=== PATIENT | male | born 1965 | race Caucasian/White ===

== ENCOUNTER 2018-07-12 21:36 | Inpatient (IN) | payer OTHER ==
[2018-07-12 23:12] VITALS: BMI 29.2
--- NOTE | 2018-07-13 00:54 | HP ---
"CIWA Score Nausea/Vomitin-No Nausea/No Vomiting Muscle Tremors: 4-Moderate,w/Arms Extend Anxiety: 3 Agitation: 4-Moderately Restless Paroxysmal Sweats: 2 (Facial moistre w/o beads) Orientation: 2-Disoriented Date<2 days Tacttile Disturbances: 0-None Auditory Disturbances: 0-None Visual Disturbances: 0-None Headache: 0-None Present CIWA-Ar Total Score: 15 - Admission Criteria OASAS Guidelines: Admission for Medically Managed Detox: Requires at least one of the followin. CIWA greater than 12 2. Seizures within the past 24 hours 3. Delirium tremens within the past 24 hours 4. Hallucinations within the past 24 hours 5. Acute intervention needed for co occurring medical disorder 6. Acute intervention needed for co occurring psychiatric disorder 7. Severe withdrawal that cannot be handled at a lower level of care (continued vomiting, continued diarrhea, abnormal vital signs) requiring intravenous medication and/or fluids 8. Patient presents the following: CIWA greater than 12 Admission Criteria Met: Admission criteria met Admission ROS [facility] Chief Complaint: Here for alcohol withdrawal. Allergies/Adverse Reactions: Allergies Allergy/AdvReac Type Severity Reaction Status Date / Time No Known Allergies Allergy Verified 07/13/18 00:55 History of Present Illness: Here for alcohol detox. Alcohol use since age 34. Drinks 2 pints rum last 2-3 days. Heroin use began at age 34. Relapsing despite on [facility]. Currently on Methadone 60 mg PO daily. States last medicated today. States on the [facility] program on [address] Needs dose verification. Denies seizures or blackouts. Last overdose 4 years ago. Longest length of sobriety 2 years 1225-4274. (R) eye redness w/ pain or itching. With (+) blurriness x 1 day. Denies eye trauma. Hx: Depression. Denies thoughts of hurting self or others Search Terms: Jesus Humphrey, 1965 Search Date: 07/13/2018 01:02:49 AM The Drug Utilization Report below displays all of the controlled substance prescriptions, if any, that your patient has filled in the last twelve months. The information displayed on this report is compiled from pharmacy submissions to the Department, and accurately reflects the information as submitted by the pharmacies. This report was requested by: Ayleen Forde | Reference #: [id number] Exam Limitations: No Limitations - Ebola screening Have you traveled outside of the country in the last 21 days: No Have you had contact with anyone from an Ebola affected area: No Have you been sick,other than usual withdrawal symptoms: No Do you have a fever: No - Review of Systems Constitutional: Diaphoresis EENT: reports: Blurred Vision, Dental Problems (Missing teeth. Chews and swallows ok.) Respiratory: reports: No Symptoms reported Cardiac: reports: No Symptoms Reported GI: reports: No Symptoms Reported : reports: No Symptoms Reported Musculoskeletal: reports: Joint Pain (Omega knee pain. Uses a cane.) Integumentary: reports: Rash (Dry rash x 1 month. Denies itching) Neuro: reports: Numbness (Numbness and cramps in legs - worse when wakes up in am.), Tremors Endocrine: reports: Increased Thirst, Increased Urine Hematology: reports: No Symptoms Reported Psychiatric: reports: Judgement Intact, Agitated, Anxious, Depressed, Disorientated (Knows month. Unsure of date.) Patient History - Patient Medical History Hx Anemia: No Hx Asthma: No Hx Chronic Obstructive Pulmonary Disease (COPD): No Hx Cancer: No Hx Cardiac Disorders: No Hx Congestive Heart Failure: No Hx Hypertension: No HX Cerebrovascular Accident: No Hx Seizures: No Hx Dementia: No Hx Diabetes: No Hx Gastrointestinal Disorders: No Hx Genitourinary Disorders: No Hx Sexually Transmitted Disorders: No Hx Hepatitis C: Yes (Treated) Hx Depression: Yes (Denies thoughts of hurting self or others) Hx Bipolar Disorder: Yes - PPD History Previous Implant?: Yes Documented Results: Negative w/proof Implanted On Prior [facility] Admission?: Yes PPD to be Administered?: No - Smoking Cessation Smoking history: Current every day smoker Have you smoked in the past 12 months: Yes Aproximately how many cigarettes per day: 5 Hx Chewing Tobacco Use: No Initiated information on smoking cessation: Yes 'Breaking Loose' booklet given: 07/13/18 - Substance & Tx. History Hx Alcohol Use: Yes Hx Substance Use: Yes Substance Use Type: Alcohol, Heroin Hx Substance Use Treatment: Yes (detox, [facility]) Admission Physical Exam BHS - Vital Signs Vital Signs: Vital Signs - 24 hr 07/12/18 23:02 Temperature 98.1 F Pulse Rate 67 Respiratory 18 Rate Blood Pressure 153/83 - Physical General Appearance: Yes: Nourished, Mild Distress, Tremorous, Irritable, Sweating, Anxious HEENTM: Yes: EOMI, Hearing grossly Normal, BERNY, Other (Increased scleral and junctival erythema w/ injection. Small amount of whitish discharge from punctum. 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, Alert, Motor Strength 5/5, Normal Mood /Affect Integumentary: Yes: Dry, Warm, Rash (Papular lesions facial area), Other ( Darkened discoloration of legs w/ edema.) Lymphatic: Yes: Within Normal Limits - Diagnostic (1) Alcohol dependence with uncomplicated withdrawal Current Visit: Yes Status: Acute (2) Nicotine dependence, uncomplicated Current Visit: Yes Status: Chronic Qualifiers: Nicotine product type: cigarettes Qualified Code(s): F17.210 - Nicotine dependence, cigarettes, uncomplicated (3) Methadone maintenance therapy patient Current Visit: Yes Status: Chronic (4) Conjunctivitis Current Visit: Yes Status: Acute Qualifiers: Conjunctivitis type: unspecified Laterality: right Qualified Code(s): H10.9 - Unspecified conjunctivitis (5) Rash and nonspecific skin eruption Current Visit: Yes Status: Chronic Comment: Facial area Cleared for Admission [facility] - Detox or Rehab [facility] Level of Care: Medically Managed Detox Regimen/Protocol: Librium [facility] Breath Alcohol Content Breath Alcohol Content: 0 Urine Drug Screen - Results Drug Screen Negative: No Urine Drug Screen Results: OPI-Opiates, MTD-Methadone, OXY-Oxycodone, FEN- Fentanyl"
[2018-07-13] MEDS ORDERED: MAGNESIUM CITRATE 300 ML BOTTLE PO PRN (01:22)
[2018-07-13] MEDS ORDERED: MAGNESIUM HYDROX 2400MG/30ML ORAL SUSPENSION 30 ML CUP PO PRN (01:22)
[2018-07-13] MEDS ORDERED: NICOTINE POLACRILEX 2 MG GUM BC PRN (01:22)
[2018-07-13] MEDS ORDERED: IBUPROFEN 400 MG TABLET (FP) PO PRN (01:22)
[2018-07-13] MEDS ORDERED: chlordiazePOXIDE HCL 25 MG CAPSULE PO PRN (01:22)
[2018-07-13] MEDS ORDERED: chlordiazePOXIDE HCL 25 MG CAPSULE PO ONE (01:22)
[2018-07-13] MEDS ORDERED: MENTHOL/PHENOL 1 EACH UD MM PRN (01:22)
[2018-07-13] MEDS ORDERED: LOPERAMIDE HCL 2 MG CAPSULE PO PRN (01:22)
[2018-07-13] MEDS ORDERED: ACETAMINOPHEN 325 MG TABLET (FP) PO PRN (01:22)
[2018-07-13] MEDS ORDERED: MAG HYDROX/AL HYDROX/SIMETH 30 ML UNIT-DOSE CUP PO PRN (01:22)
[2018-07-13] MEDS: OFLOXACIN 0.3% OPHTHALMIC SOLUTION 5 ML BOTTLE OD SCH ×5 (06:11→22:32)
[2018-07-13] MEDS: HYDROCORTISONE 1% TOPICAL CREAM 30 GM TUBE TP SCH ×3 (06:11→22:32)
[2018-07-13] MEDS: chlordiazePOXIDE HCL 25 MG CAPSULE PO SCH ×4 (06:12→22:32)
[2018-07-13] MEDS ORDERED: METHADONE HCL 10 MG TABLET PO SCH (09:00)
[2018-07-13] MEDS ORDERED: METHADONE HCL 40 MG DISPERSABLE TABLET ONE (09:39)
[2018-07-13] MEDS ORDERED: METHADONE HCL 10 MG TABLET ONE (09:40)
[2018-07-13] MEDS: METHADONE 40 MG, METHADONE 20 MG PO SCH (11:54)
[2018-07-13] MEDS: PRENATAL VITAMINS W/ FOLIC ACID TABLET (FP) PO SCH (11:55)
[2018-07-13] MEDS: NICOTINE 7 MG/24 HOURS TOPICAL PATCH TD SCH (11:56)
--- NOTE | 2018-07-13 16:24 | EKG ---
Test Reason : Blood Pressure : / mmHG Vent. Rate : 067 BPM Atrial Rate : 067 BPM P-R Int : 168 ms QRS Dur : 092 ms QT Int : 432 ms P-R-T Axes : 059 017 020 degrees QTc Int : 456 ms NORMAL SINUS RHYTHM NORMAL ECG NO PREVIOUS ECGS AVAILABLE Confirmed by DELMAR BUCHANAN MD ([id number]) on 07/13/2018 4:24:11 PM Referred By: Confirmed By:DELMAR BUCHANAN MD
--- NOTE | 2018-07-13 17:27 | PN ---
S CIWA - CIWA Score Nausea/Vomitin-No Nausea/No Vomiting Muscle Tremors: 4-Moderate,w/Arms Extend Anxiety: 2 Agitation: 0-Normal Activity Paroxysmal Sweats: 3 Orientation: 0-Oriented Tacttile Disturbances: 0-None Auditory Disturbances: 0-None Visual Disturbances: 3-Moderate Sensitivity Headache: 0-None Present CIWA-Ar Total Score: 12 BHS Progress Note (SOAP) Subjective: Body Aches, Sweating, Tremors. Objective: PATIENT A & O X 3. IN NO ACUTE DISTRESS. 07/13/18 17:27 Vital Signs Temperature 98.2 F 07/13/18 16:55 Pulse Rate 52 L 07/13/18 16:55 Respiratory Rate 16 07/13/18 16:55 Blood Pressure 105/62 07/13/18 16:55 O2 Sat by Pulse Oximetry (%) ADMISSION LAB RESULTS PENDING. 07/13/18 17:28 Assessment: 07/13/18 17:28 WITHDRAWAL SYMPTOMS. Plan: CONTINUE DETOX. INCREASE DAILY PO FLUID INTAKE. ENCOURAGE AMBULATION.
[2018-07-13] MEDS ORDERED: MELATONIN 5 MG TABLETS PO PRN (22:00)
[2018-07-13] MEDS: THIAMINE HCL 100 MG TABLET (FP) PO SCH (22:31)
[2018-07-14] MEDS ORDERED: METHADONE HCL 40 MG DISPERSABLE TABLET ONE (05:37)
[2018-07-14] MEDS: METHADONE 40 MG, METHADONE 20 MG PO SCH (05:38)
[2018-07-14] MEDS ORDERED: METHADONE HCL 10 MG TABLET ONE (05:38)
[2018-07-14] MEDS: chlordiazePOXIDE HCL 25 MG CAPSULE PO SCH ×3 (05:38→18:07)
[2018-07-14] MEDS: HYDROCORTISONE 1% TOPICAL CREAM 30 GM TUBE TP SCH ×3 (05:40→23:55)
[2018-07-14] MEDS: OFLOXACIN 0.3% OPHTHALMIC SOLUTION 5 ML BOTTLE OD SCH ×5 (05:40→23:55)
[2018-07-14 11:01] LABS: HEMATOCRIT 35.1 % (35.4-49); HEMOGLOBIN 11.4 GM/dL (11.7-16.9); MCH 28.3 pg (25.7-33.7); MCHC 32.4 g/dl (32.0-35.9); MEAN CELL VOLUME 87.2 fl (80-96); MEAN PLT VOLUME 8.2 fl (7.5-11.1); PLATELET COUNT 183 K/MM3 (134-434); RBC 4.02 M/mm3 (4.00-5.60); RDW 15.4 % (11.9-15.9); WHITE BLOOD COUNT 3.5 K/mm3 (4.0-10.0)
[2018-07-14] MEDS: PRENATAL VITAMINS W/ FOLIC ACID TABLET (FP) PO SCH (11:39)
[2018-07-14] MEDS: NICOTINE 7 MG/24 HOURS TOPICAL PATCH TD SCH (11:39)
[2018-07-14 11:41] LABS: ALBUMIN 3.1 g/dl (3.4-5.0); ALK PHOS 64 U/L (45-117); ANION GAP 5 MMOL/L (8-16); BILIRUBIN,TOTAL 0.7 mg/dL (0.2-1); BLOOD UREA NITROGEN 16 mg/dL (7-18); CALCIUM 8.1 mg/dL (8.5-10.1); CHLORIDE 104 mmol/L (98-107); CO2 29 mmol/L (21-32); CREATININE 0.6 mg/dL (0.55-1.3); GLUCOSE,RANDOM 95 mg/dL (74-106); POTASSIUM 4.1 mmol/L (3.5-5.1); SGOT/AST 19 U/L (15-37); SGPT/ALT 21 U/L (13-61); SODIUM 138 mmol/L (136-145); TOT PROT 6.6 g/dl (6.4-8.2)
[2018-07-14] MEDS ORDERED: TRIMETHOBENZAMIDE HCL 300 MG CAPSULE PO PRN (13:37)
[2018-07-14 16:27] LABS: URINE APPEARANCE CLEAR; URINE BILIRUBIN NEGATIVE (<2.0 mg/dL); URINE COLOR YELLOW; URINE GLUCOSE (UA) NEGATIVE (NEGATIVE); URINE KETONE NEGATIVE (NEGATIVE); URINE LEUK ESTERASE TRACE (NEGATIVE); URINE NITRITE NEGATIVE (NEGATIVE); URINE PROTEIN NEGATIVE (NEGATIVE)
[2018-07-14 16:52] LABS: EPI CELLS RARE /HPF (FEW)
--- NOTE | 2018-07-14 19:07 | PN ---
S CIWA - CIWA Score Nausea/Vomitin Muscle Tremors: 3 Anxiety: 1-Mildly Anxious Agitation: 0-Normal Activity Paroxysmal Sweats: 3 Orientation: 2-Disoriented Date<2 days Tacttile Disturbances: 0-None Auditory Disturbances: 0-None Visual Disturbances: 0-None Headache: 2-Mild CIWA-Ar Total Score: 16 BHS Progress Note (SOAP) Subjective: Vomiting, Stomach Cramping, Sweating, Body Aches, H/A, Tremors. Objective: PATIENT A & O X 2 (UNCERTAIN ABOUT CURRENT DAY / DATE). PATIENT OBSERVED AMBULATING ON UNIT. IN NO ACUTE DISTRESS. 07/14/18 19:04 Vital Signs Temperature 98.4 F 07/14/18 18:43 Pulse Rate 67 07/14/18 18:43 Respiratory Rate 18 07/14/18 18:43 Blood Pressure 122/69 07/14/18 18:43 O2 Sat by Pulse Oximetry (%) Laboratory Tests 07/13/18 07/14/18 07/14/18 07:00 07:00 07:00 WBC 3.5 L RBC 4.02 Hgb 11.4 L Hct 35.1 L MCV 87.2 MCH 28.3 MCHC 32.4 RDW 15.4 Plt Count 183 MPV 8.2 Sodium 138 Potassium 4.1 Chloride 104 Carbon Dioxide 29 Anion Gap 5 L BUN 16 Creatinine 0.6 Creat Clearance w eGFR > 60 Random Glucose 95 Calcium 8.1 L Total Bilirubin 0.7 AST 19 ALT 21 Alkaline Phosphatase 64 Total Protein 6.6 Albumin 3.1 L Urine Color Urine Appearance Urine pH Ur Specific [place] Urine Protein Urine Glucose (UA) Urine Ketones Urine Blood Urine Nitrite Urine Bilirubin Urine Urobilinogen Ur Leukocyte Esterase Urine WBC (Auto) Urine RBC (Auto) Ur Epithelial Cells RPR Titer HIV 1&2 Antibody Screen Negative HIV P24 Antigen Negative 07/14/18 07/14/18 07:00 12:50 WBC RBC Hgb Hct MCV MCH MCHC RDW Plt Count MPV Sodium Potassium Chloride Carbon Dioxide Anion Gap BUN Creatinine Creat Clearance w eGFR Random Glucose Calcium Total Bilirubin AST ALT Alkaline Phosphatase Total Protein Albumin Urine Color Yellow Urine Appearance Clear Urine pH 7.0 Ur Specific [place] 1.023 Urine Protein Negative Urine Glucose (UA) Negative Urine Ketones Negative Urine Blood Negative Urine Nitrite Negative Urine Bilirubin Negative Urine Urobilinogen 2.0 Ur Leukocyte Esterase Trace Urine WBC (Auto) 2 Urine RBC (Auto) 3 Ur Epithelial Cells Rare RPR Titer Nonreactive HIV 1&2 Antibody Screen HIV P24 Antigen LABS NOTED. Assessment: 07/14/18 19:05 WITHDRAWAL SYMPTOMS. LEUKOPENIA. 07/14/18 19:07 Plan: CONTINUE DETOX. INCREASE DAILY PO FLUID INTAKE.
[2018-07-14] MEDS: THIAMINE HCL 100 MG TABLET (FP) PO SCH (23:55)
[2018-07-15] MEDS: chlordiazePOXIDE HCL 25 MG CAPSULE PO SCH (00:27)
[2018-07-15] MEDS ORDERED: METHADONE HCL 40 MG DISPERSABLE TABLET ONE (06:13)
[2018-07-15] MEDS: chlordiazePOXIDE 5 MG CAPSULE PO SCH ×4 (06:13→22:18)
[2018-07-15] MEDS: METHADONE 40 MG, METHADONE 20 MG PO SCH (06:13)
[2018-07-15] MEDS ORDERED: METHADONE HCL 10 MG TABLET ONE (06:13)
[2018-07-15] MEDS: HYDROCORTISONE 1% TOPICAL CREAM 30 GM TUBE TP SCH ×3 (07:41→22:18)
[2018-07-15] MEDS: OFLOXACIN 0.3% OPHTHALMIC SOLUTION 5 ML BOTTLE OD SCH ×5 (07:42→22:19)
--- NOTE | 2018-07-15 09:06 | PN ---
BHS Progress Note (SOAP) Subjective: Pt states doing well on detox protocol O Vital Signs - 24 hr 07/14/18 07/14/18 07/14/18 09:58 15:58 18:43 Temperature 97.7 F 99.7 F H 98.4 F Pulse Rate 48 L 58 L 67 Respiratory 18 18 18 Rate Blood Pressure 110/62 98/54 L 122/69 07/15/18 07/15/18 07/15/18 00:07 00:30 03:30 Temperature 99.7 F H Pulse Rate 67 Respiratory 18 18 18 Rate Blood Pressure 116/68 07/15/18 07:12 Temperature 97.8 F Pulse Rate 52 L Respiratory 18 Rate Blood Pressure 110/66 Laboratory Tests 07/13/18 07/14/18 07/14/18 07:00 07:00 07:00 WBC 3.5 L RBC 4.02 Hgb 11.4 L Hct 35.1 L MCV 87.2 MCH 28.3 MCHC 32.4 RDW 15.4 Plt Count 183 MPV 8.2 Sodium 138 Potassium 4.1 Chloride 104 Carbon Dioxide 29 Anion Gap 5 L BUN 16 Creatinine 0.6 Creat Clearance w eGFR > 60 Random Glucose 95 Calcium 8.1 L Total Bilirubin 0.7 AST 19 ALT 21 Alkaline Phosphatase 64 Total Protein 6.6 Albumin 3.1 L Urine Color Urine Appearance Urine pH Ur Specific [place] Urine Protein Urine Glucose (UA) Urine Ketones Urine Blood Urine Nitrite Urine Bilirubin Urine Urobilinogen Ur Leukocyte Esterase Urine WBC (Auto) Urine RBC (Auto) Ur Epithelial Cells RPR Titer HIV 1&2 Antibody Screen Negative HIV P24 Antigen Negative 07/14/18 07/14/18 07:00 12:50 WBC RBC Hgb Hct MCV MCH MCHC RDW Plt Count MPV Sodium Potassium Chloride Carbon Dioxide Anion Gap BUN Creatinine Creat Clearance w eGFR Random Glucose Calcium Total Bilirubin AST ALT Alkaline Phosphatase Total Protein Albumin Urine Color Yellow Urine Appearance Clear Urine pH 7.0 Ur Specific [place] 1.023 Urine Protein Negative Urine Glucose (UA) Negative Urine Ketones Negative Urine Blood Negative Urine Nitrite Negative Urine Bilirubin Negative Urine Urobilinogen 2.0 Ur Leukocyte Esterase Trace Urine WBC (Auto) 2 Urine RBC (Auto) 3 Ur Epithelial Cells Rare RPR Titer Nonreactive HIV 1&2 Antibody Screen HIV P24 Antigen a/p: Pt here for alcohol detox- continue detox protocol, pt without complaints
[2018-07-15] MEDS: PRENATAL VITAMINS W/ FOLIC ACID TABLET (FP) PO SCH (10:52)
[2018-07-15] MEDS: NICOTINE 7 MG/24 HOURS TOPICAL PATCH TD SCH (10:56)
[2018-07-15] MEDS: THIAMINE HCL 100 MG TABLET (FP) PO SCH (22:18)
[2018-07-16] MEDS ORDERED: METHADONE HCL 40 MG DISPERSABLE TABLET ONE (04:16)
[2018-07-16] MEDS ORDERED: METHADONE HCL 10 MG TABLET ONE (04:16)
[2018-07-16] MEDS: chlordiazePOXIDE HCL 10 MG CAPSULE PO SCH ×2 (05:48→10:40)
[2018-07-16] MEDS: METHADONE 40 MG, METHADONE 20 MG PO SCH (05:48)
[2018-07-16] MEDS: HYDROCORTISONE 1% TOPICAL CREAM 30 GM TUBE TP SCH ×2 (07:06→15:12)
[2018-07-16] MEDS: OFLOXACIN 0.3% OPHTHALMIC SOLUTION 5 ML BOTTLE OD SCH ×3 (07:07→15:12)
--- NOTE | 2018-07-16 09:17 | DS ---
[facility] Detox Discharge Summary Admission Date: 07/12/18 Discharge Date: 07/16/18 - History Present History: Alcohol Dependence Additional Comments: 53 years old male admitted on 07/13/18 for alcohol withdrawal stabilization feeling better preferred begin chemical rehab today at [facility] no acute distress reported tolerable withdrawal sx at the present time - Physical Exam Results Vital Signs: Vital Signs Temperature 97.9 F 07/16/18 07:46 Pulse Rate 55 L 07/16/18 07:46 Respiratory Rate 18 07/16/18 07:46 Blood Pressure 102/59 L 07/16/18 07:46 O2 Sat by Pulse Oximetry (%) Pertinent Admission Physical Exam Findings: Laboratory Last Values WBC 3.5 K/mm3 (4.0-10.0) L 07/14/18 07:00 RBC 4.02 M/mm3 (4.00-5.60) 07/14/18 07:00 Hgb 11.4 GM/dL (11.7-16.9) L 07/14/18 07:00 Hct 35.1 % (35.4-49) L 07/14/18 07:00 MCV 87.2 fl (80-96) 07/14/18 07:00 MCH 28.3 pg (25.7-33.7) 07/14/18 07:00 MCHC 32.4 g/dl (32.0-35.9) 07/14/18 07:00 RDW 15.4 % (11.9-15.9) 07/14/18 07:00 Plt Count 183 K/MM3 (134-434) 07/14/18 07:00 MPV 8.2 fl (7.5-11.1) 07/14/18 07:00 Sodium 138 mmol/L (136-145) 07/14/18 07:00 Potassium 4.1 mmol/L (3.5-5.1) 07/14/18 07:00 Chloride 104 mmol/L (98-107) 07/14/18 07:00 Carbon Dioxide 29 mmol/L (21-32) 07/14/18 07:00 Anion Gap 5 MMOL/L (8-16) L 07/14/18 07:00 BUN 16 mg/dL (7-18) 07/14/18 07:00 Creatinine 0.6 mg/dL (0.55-1.3) 07/14/18 07:00 Creat Clearance w eGFR > 60 (>60) 07/14/18 07:00 Random Glucose 95 mg/dL (74-106) 07/14/18 07:00 Calcium 8.1 mg/dL (8.5-10.1) L 07/14/18 07:00 Total Bilirubin 0.7 mg/dL (0.2-1) 07/14/18 07:00 AST 19 U/L (15-37) 07/14/18 07:00 ALT 21 U/L (13-61) 07/14/18 07:00 Alkaline Phosphatase 64 U/L (45-117) 07/14/18 07:00 Total Protein 6.6 g/dl (6.4-8.2) 07/14/18 07:00 Albumin 3.1 g/dl (3.4-5.0) L 07/14/18 07:00 Urine Color Yellow 07/14/18 12:50 Urine Appearance Clear 07/14/18 12:50 Urine pH 7.0 (5.0-8.0) 07/14/18 12:50 Ur Specific [place] 1.023 (1.010-1.035) 07/14/18 12:50 Urine Protein Negative (NEGATIVE) 07/14/18 12:50 Urine Glucose (UA) Negative (NEGATIVE) 07/14/18 12:50 Urine Ketones Negative (NEGATIVE) 07/14/18 12:50 Urine Blood Negative (NEGATIVE) 07/14/18 12:50 Urine Nitrite Negative (NEGATIVE) 07/14/18 12:50 Urine Bilirubin Negative (<2.0 mg/dL) 07/14/18 12:50 Urine Urobilinogen 2.0 mg/dL (0.2-1.0) 07/14/18 12:50 Ur Leukocyte Esterase Trace (NEGATIVE) 07/14/18 12:50 Urine WBC (Auto) 2 /hpf (3-5) 07/14/18 12:50 Urine RBC (Auto) 3 /hpf (0-3) 07/14/18 12:50 Ur Epithelial Cells Rare /HPF (FEW) 07/14/18 12:50 RPR Titer Nonreactive (NONREACTIVE) 07/14/18 07:00 HIV 1&2 Antibody Screen Negative 07/13/18 07:00 HIV P24 Antigen Negative 07/13/18 07:00 lab noted alcohol withdrawal sx - Treatment Hospital Course: Detox Protocol Followed, Detoxed Safely, Responded well, Discharged Condition Good, Rehab Referral Accepted Patient has Accepted a Rehab Referral to: [facility] - Medication Discharge Medications: Ambulatory Orders NK [No Known Home Medication] 07/13/18 - Diagnosis (1) Alcohol dependence with uncomplicated withdrawal Current Visit: Yes Status: Acute (2) Methadone maintenance therapy patient Current Visit: Yes Status: Chronic (3) Nicotine dependence, uncomplicated Current Visit: Yes Status: Acute Qualifiers: Nicotine product type: cigarettes Qualified Code(s): F17.210 - Nicotine dependence, cigarettes, uncomplicated - AMA Did Patient Leave Against Medical Advice: No
[2018-07-16] MEDS: PRENATAL VITAMINS W/ FOLIC ACID TABLET (FP) PO SCH (10:39)
[2018-07-16] MEDS: NICOTINE 7 MG/24 HOURS TOPICAL PATCH TD SCH (10:40)
[2018-07-16 13:55] VITALS: BP 108/56; PULSE 58; TEMP 98.1
== END 2018-07-16 15:59 | disposition other institution (70) | DRG 773 ==
LOC: YASAS 21:36 → Y6N 23:51
PROC: HZ2ZZZZ Detoxification Services for Substance Abuse Treatment (ICD-10-PCS; principal; 2018-07-12)
DX: F10.230 Alcohol dependence with withdrawal, uncomplicated (principal); F11.20 Opioid dependence, uncomplicated; F17.210 Nicotine dependence, cigarettes, uncomplicated; F31.9 Bipolar disorder, unspecified; R21 Rash and other nonspecific skin eruption; H10.9 Unspecified conjunctivitis; Z86.19 Personal history of other infectious and parasitic diseases; Z59.0 Homelessness
CPT/HCPCS: 36415; 80053; 81003; 81015; 85027; 86593; 87389; 93005; 93010

== ENCOUNTER 2018-07-16 16:10 | Inpatient (IN) | payer OTHER ==
--- NOTE | 2018-07-16 12:43 | HP ---
LIZZETTE SEBASTIAN Rehab Assess/Revision - Admission History Admitted to Rehab from: [facility] [place] Date of Admission to Rehab: 07/16/18 - Findings Detox History & Physical reviewed: Yes Concur with findings: Yes Comments/Additional Findings: transferred from detox to rehab admission a sper protocol Inpatient Rehab Admission - Initial Determination Are CD services needed?: Yes Free of communicable disease: Yes Not in need of hospitalization: Yes - Rehab Admission Criteria Previous failed treatment: Yes Poor recovery environment: Yes Comorbidities: Yes Lacks judgement: No Patient is meeting Inpatient Rehab admission criteria:: Yes
[~2018-07-16 16:10] MED LIST: ACETAMINOPHEN 325 MG TABLET (FP) PO PRN; IBUPROFEN 400 MG TABLET (FP) PO PRN; LOPERAMIDE HCL 2 MG CAPSULE PO PRN; MAG HYDROX/AL HYDROX/SIMETH 30 ML UNIT-DOSE CUP PO PRN; MAGNESIUM CITRATE 300 ML BOTTLE PO PRN; MAGNESIUM HYDROX 2400MG/30ML ORAL SUSPENSION 30 ML CUP PO PRN; MENTHOL/PHENOL 1 EACH UD MM PRN; NICOTINE 14 MG/24 HOURS TOPICAL PATCH TD PRN; NICOTINE POLACRILEX 2 MG GUM BUC PRN; P-EPHED 60MG/TRIPROLIDI 2.5MG TABLET PO PRN; guaiFENesin/D-METHORPHAN HB 10 ML UNIT-DOSE CUPS PO PRN
[2018-07-16] MEDS: THIAMINE HCL 100 MG TABLET (FP) PO SCH (22:11)
[2018-07-17] MEDS ORDERED: METHADONE HCL 10 MG TABLET ONE (06:14)
[2018-07-17] MEDS: METHADONE 40 MG, METHADONE 20 MG PO SCH (06:15)
[2018-07-17] MEDS ORDERED: METHADONE HCL 40 MG DISPERSABLE TABLET ONE (06:15)
[2018-07-17] MEDS ORDERED: METHADONE HCL 40 MG DISPERSABLE TABLET PO SCH (10:00)
[2018-07-17] MEDS: PRENATAL VITAMINS W/ FOLIC ACID TABLET (FP) PO SCH (10:30)
[2018-07-17] MEDS ORDERED: OFLOXACIN 0.3% OPHTHALMIC SOLUTION 5 ML BOTTLE OD SCH (11:00)
[2018-07-17] MEDS: OFLOXACIN 0.3% OPHTHALMIC SOLUTION 5 ML BOTTLE OD SCH ×3 (14:28→21:45)
[2018-07-17] MEDS: MELATONIN 5 MG TABLETS PO PRN (21:45)
[2018-07-17] MEDS: THIAMINE HCL 100 MG TABLET (FP) PO SCH (21:45)
[2018-07-18] MEDS: OFLOXACIN 0.3% OPHTHALMIC SOLUTION 5 ML BOTTLE OD SCH ×5 (06:18→21:51)
[2018-07-18] MEDS ORDERED: METHADONE HCL 40 MG DISPERSABLE TABLET ONE (07:05)
[2018-07-18] MEDS ORDERED: METHADONE HCL 10 MG TABLET ONE (07:05)
[2018-07-18] MEDS: METHADONE 40 MG, METHADONE 20 MG PO SCH (07:18)
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
[2018-07-18] MEDS: PRENATAL VITAMINS W/ FOLIC ACID TABLET (FP) PO SCH (11:00)
[2018-07-18] MEDS: THIAMINE HCL 100 MG TABLET (FP) PO SCH (21:51)
[2018-07-19] MEDS ORDERED: METHADONE HCL 10 MG TABLET ONE (06:33)
[2018-07-19] MEDS ORDERED: METHADONE HCL 40 MG DISPERSABLE TABLET ONE (06:33)
[2018-07-19] MEDS: METHADONE 40 MG, METHADONE 20 MG PO SCH (06:33)
[2018-07-19] MEDS: OFLOXACIN 0.3% OPHTHALMIC SOLUTION 5 ML BOTTLE OD SCH ×5 (06:34→21:42)
[2018-07-19] MEDS: PRENATAL VITAMINS W/ FOLIC ACID TABLET (FP) PO SCH (10:23)
[2018-07-19] MEDS: THIAMINE HCL 100 MG TABLET (FP) PO SCH (21:42)
[2018-07-19] MEDS: MELATONIN 5 MG TABLETS PO PRN (21:43)
[2018-07-20] MEDS ORDERED: METHADONE HCL 10 MG TABLET ONE (03:39)
[2018-07-20] MEDS ORDERED: METHADONE HCL 40 MG DISPERSABLE TABLET ONE (03:39)
[2018-07-20] MEDS: METHADONE 40 MG, METHADONE 20 MG PO SCH (06:27)
[2018-07-20] MEDS: OFLOXACIN 0.3% OPHTHALMIC SOLUTION 5 ML BOTTLE OD SCH ×5 (06:27→21:59)
[2018-07-20] MEDS: PRENATAL VITAMINS W/ FOLIC ACID TABLET (FP) PO SCH (10:47)
[2018-07-20] MEDS: THIAMINE HCL 100 MG TABLET (FP) PO SCH (21:59)
[2018-07-20] MEDS: MELATONIN 5 MG TABLETS PO PRN (22:00)
[2018-07-21] MEDS ORDERED: METHADONE HCL 10 MG TABLET ONE (04:06)
[2018-07-21] MEDS ORDERED: METHADONE HCL 40 MG DISPERSABLE TABLET ONE (04:07)
[2018-07-21] MEDS: OFLOXACIN 0.3% OPHTHALMIC SOLUTION 5 ML BOTTLE OD SCH ×5 (06:27→21:54)
[2018-07-21] MEDS: METHADONE 40 MG, METHADONE 20 MG PO SCH (06:27)
[2018-07-21] MEDS: PRENATAL VITAMINS W/ FOLIC ACID TABLET (FP) PO SCH (10:59)
[2018-07-21] MEDS: THIAMINE HCL 100 MG TABLET (FP) PO SCH (21:54)
[2018-07-22] MEDS ORDERED: METHADONE HCL 10 MG TABLET ONE (02:56)
[2018-07-22] MEDS ORDERED: METHADONE HCL 40 MG DISPERSABLE TABLET ONE (02:56)
[2018-07-22] MEDS: METHADONE 40 MG, METHADONE 20 MG PO SCH (06:43)
[2018-07-22] MEDS: OFLOXACIN 0.3% OPHTHALMIC SOLUTION 5 ML BOTTLE OD SCH ×5 (06:43→22:00)
[2018-07-22] MEDS: PRENATAL VITAMINS W/ FOLIC ACID TABLET (FP) PO SCH (10:39)
[2018-07-22] MEDS: THIAMINE HCL 100 MG TABLET (FP) PO SCH (21:59)
[2018-07-23] MEDS ORDERED: METHADONE HCL 10 MG TABLET ONE (05:25)
[2018-07-23] MEDS ORDERED: METHADONE HCL 40 MG DISPERSABLE TABLET ONE (05:25)
[2018-07-23] MEDS: METHADONE 40 MG, METHADONE 20 MG PO SCH (06:38)
[2018-07-23] MEDS: OFLOXACIN 0.3% OPHTHALMIC SOLUTION 5 ML BOTTLE OD SCH ×5 (06:39→23:32)
[2018-07-23] MEDS: PRENATAL VITAMINS W/ FOLIC ACID TABLET (FP) PO SCH (10:23)
[2018-07-23] MEDS: THIAMINE HCL 100 MG TABLET (FP) PO SCH (22:12)
[2018-07-24] MEDS ORDERED: METHADONE HCL 10 MG TABLET ONE (06:34)
[2018-07-24] MEDS ORDERED: METHADONE HCL 40 MG DISPERSABLE TABLET ONE (06:34)
[2018-07-24] MEDS: METHADONE 40 MG, METHADONE 20 MG PO SCH (06:34)
[2018-07-24] MEDS: OFLOXACIN 0.3% OPHTHALMIC SOLUTION 5 ML BOTTLE OD SCH ×5 (06:35→21:48)
[2018-07-24] MEDS: PRENATAL VITAMINS W/ FOLIC ACID TABLET (FP) PO SCH (10:49)
[2018-07-24] MEDS: THIAMINE HCL 100 MG TABLET (FP) PO SCH (21:47)
[2018-07-25] MEDS ORDERED: METHADONE HCL 40 MG DISPERSABLE TABLET ONE (03:57)
[2018-07-25] MEDS ORDERED: METHADONE HCL 10 MG TABLET ONE (03:57)
[2018-07-25] MEDS: METHADONE 40 MG, METHADONE 20 MG PO SCH (06:22)
[2018-07-25] MEDS: OFLOXACIN 0.3% OPHTHALMIC SOLUTION 5 ML BOTTLE OD SCH ×5 (07:13→21:56)
[2018-07-25] MEDS: PRENATAL VITAMINS W/ FOLIC ACID TABLET (FP) PO SCH (10:22)
[2018-07-25] MEDS: THIAMINE HCL 100 MG TABLET (FP) PO SCH (21:56)
[2018-07-26] MEDS ORDERED: METHADONE HCL 40 MG DISPERSABLE TABLET ONE (04:27)
[2018-07-26] MEDS ORDERED: METHADONE HCL 10 MG TABLET ONE (04:27)
[2018-07-26] MEDS: METHADONE 40 MG, METHADONE 20 MG PO SCH (07:14)
[2018-07-26] MEDS: OFLOXACIN 0.3% OPHTHALMIC SOLUTION 5 ML BOTTLE OD SCH ×5 (07:14→21:37)
[2018-07-26] MEDS: PRENATAL VITAMINS W/ FOLIC ACID TABLET (FP) PO SCH (10:10)
[2018-07-26] MEDS: THIAMINE HCL 100 MG TABLET (FP) PO SCH (21:37)
[2018-07-26] MEDS: MELATONIN 5 MG TABLETS PO PRN (21:37)
[2018-07-27] MEDS ORDERED: METHADONE HCL 40 MG DISPERSABLE TABLET ONE (03:50)
[2018-07-27] MEDS ORDERED: METHADONE HCL 10 MG TABLET ONE (03:50)
[2018-07-27] MEDS: METHADONE 40 MG, METHADONE 20 MG PO SCH (06:26)
[2018-07-27] MEDS: OFLOXACIN 0.3% OPHTHALMIC SOLUTION 5 ML BOTTLE OD SCH ×5 (07:14→22:06)
[2018-07-27] MEDS: PRENATAL VITAMINS W/ FOLIC ACID TABLET (FP) PO SCH (10:36)
[2018-07-27] MEDS: THIAMINE HCL 100 MG TABLET (FP) PO SCH (21:45)
[2018-07-27] MEDS: MELATONIN 5 MG TABLETS PO PRN (21:45)
[2018-07-28] MEDS ORDERED: METHADONE HCL 40 MG DISPERSABLE TABLET ONE (04:19)
[2018-07-28] MEDS ORDERED: METHADONE HCL 10 MG TABLET ONE (04:19)
[2018-07-28] MEDS: OFLOXACIN 0.3% OPHTHALMIC SOLUTION 5 ML BOTTLE OD SCH ×5 (06:14→21:52)
[2018-07-28] MEDS: METHADONE 40 MG, METHADONE 20 MG PO SCH (06:14)
[2018-07-28] MEDS: PRENATAL VITAMINS W/ FOLIC ACID TABLET (FP) PO SCH (10:22)
[2018-07-28] MEDS: THIAMINE HCL 100 MG TABLET (FP) PO SCH (21:51)
[2018-07-28] MEDS: MELATONIN 5 MG TABLETS PO PRN (21:51)
[2018-07-29] MEDS ORDERED: METHADONE HCL 10 MG TABLET ONE (04:25)
[2018-07-29] MEDS ORDERED: METHADONE HCL 40 MG DISPERSABLE TABLET ONE (04:26)
[2018-07-29] MEDS: METHADONE 40 MG, METHADONE 20 MG PO SCH (06:22)
[2018-07-29] MEDS: OFLOXACIN 0.3% OPHTHALMIC SOLUTION 5 ML BOTTLE OD SCH ×5 (06:23→21:51)
[2018-07-29] MEDS: PRENATAL VITAMINS W/ FOLIC ACID TABLET (FP) PO SCH (10:16)
[2018-07-29] MEDS: THIAMINE HCL 100 MG TABLET (FP) PO SCH (21:51)
[2018-07-29] MEDS: MELATONIN 5 MG TABLETS PO PRN (21:51)
[2018-07-30] MEDS ORDERED: METHADONE HCL 40 MG DISPERSABLE TABLET ONE (03:42)
[2018-07-30] MEDS ORDERED: METHADONE HCL 10 MG TABLET ONE (03:42)
[2018-07-30] MEDS: METHADONE 40 MG, METHADONE 20 MG PO SCH (05:48)
[2018-07-30] MEDS: OFLOXACIN 0.3% OPHTHALMIC SOLUTION 5 ML BOTTLE OD SCH ×5 (06:19→21:36)
[2018-07-30] MEDS: PRENATAL VITAMINS W/ FOLIC ACID TABLET (FP) PO SCH (10:32)
[2018-07-30] MEDS: THIAMINE HCL 100 MG TABLET (FP) PO SCH (21:35)
[2018-07-30] MEDS: MELATONIN 5 MG TABLETS PO PRN (21:35)
[2018-07-31] MEDS ORDERED: METHADONE HCL 40 MG DISPERSABLE TABLET ONE (05:09)
[2018-07-31] MEDS ORDERED: METHADONE HCL 10 MG TABLET ONE (05:09)
[2018-07-31] MEDS: METHADONE 40 MG, METHADONE 20 MG PO SCH (06:30)
[2018-07-31] MEDS: OFLOXACIN 0.3% OPHTHALMIC SOLUTION 5 ML BOTTLE OD SCH ×5 (06:53→21:55)
[2018-07-31] MEDS: PRENATAL VITAMINS W/ FOLIC ACID TABLET (FP) PO SCH (11:02)
[2018-07-31] MEDS: THIAMINE HCL 100 MG TABLET (FP) PO SCH (21:55)
[2018-08-01] MEDS ORDERED: METHADONE HCL 10 MG TABLET ONE (04:10)
[2018-08-01] MEDS ORDERED: METHADONE HCL 40 MG DISPERSABLE TABLET ONE (04:11)
[2018-08-01] MEDS: METHADONE 40 MG, METHADONE 20 MG PO SCH (06:36)
[2018-08-01] MEDS: OFLOXACIN 0.3% OPHTHALMIC SOLUTION 5 ML BOTTLE OD SCH ×2 (06:38→11:09)
[2018-08-01] MEDS: PRENATAL VITAMINS W/ FOLIC ACID TABLET (FP) PO SCH (11:00)
[2018-08-01] MEDS: THIAMINE HCL 100 MG TABLET (FP) PO SCH (21:42)
[2018-08-01] MEDS: MELATONIN 5 MG TABLETS PO PRN (21:42)
[2018-08-02] MEDS ORDERED: METHADONE HCL 10 MG TABLET ONE (04:40)
[2018-08-02] MEDS ORDERED: METHADONE HCL 40 MG DISPERSABLE TABLET ONE (04:40)
[2018-08-02] MEDS: METHADONE 40 MG, METHADONE 20 MG PO SCH (06:17)
[2018-08-02 06:52] VITALS: BP 128/82; PULSE 57; TEMP 97.8
[2018-08-02] MEDS: PRENATAL VITAMINS W/ FOLIC ACID TABLET (FP) PO SCH (09:28)
--- NOTE | 2018-08-02 09:52 | PN ---
Psychiatric Progress Note Vital Signs: Vital Signs Period Temp Pulse Resp BP Sys/[place] Pulse Ox Last 24 Hr 97.8 F 57 16-18 128/82 Date of Session: 08/02/18 Chief Complaint:: Discharge visit HPI: Opioid and Alcohol dependence comorbid with Bipolar disorder. ROS: BA,Hep C. Current Medications: Active Medications Generic Name Dose Route Start Last Admin Trade Name Freq PRN Reason Stop Dose Admin Acetaminophen 650 mg 07/16/18 12:43 Tylenol - PO Q4H PRN FEVER Al Hydroxide/Mg Hydroxide 30 ml 07/16/18 12:43 Mylanta Oral Suspension - PO Q6H PRN DYSPEPSIA Eucalyptus/Menthol/Phenol/Sorbitol 1 each 07/16/18 12:43 Cepastat Lozenge - MM Q4H PRN SORE THROAT Guaifenesin 10 ml 07/16/18 12:43 Robitussin Dm - PO Q6H PRN COUGH Ibuprofen 400 mg 07/16/18 12:43 Motrin - PO Q6H PRN Pain Level 4-6 Loperamide HCl 4 mg 07/16/18 12:43 Imodium - PO Q6H PRN DIARRHEA Magnesium Citrate 300 ml 07/16/18 12:43 Citroma - PO Q48H PRN CONSTIPATION Magnesium Hydroxide 30 ml 07/16/18 12:43 Milk Of Magnesia - PO DAILY PRN CONSTIPATION Melatonin 5 mg 07/16/18 22:00 08/01/18 21:42 Melatonin PO 5 mg HS PRN Administration INSOMNIA Methadone HCl 40 mg/ Methadone 60 mg 07/31/18 06:00 08/02/18 06:17 HCl 20 mg PO 08/07/18 05:59 60 mg DAILY@0600 JOEY Administration Nicotine 14 mg 07/16/18 12:43 Nicoderm Patch - TD DAILY PRN WITHDRAWAL(CONT SUBST) Nicotine Polacrilex 2 mg 07/16/18 12:43 Nicorette Gum - BUC Q2H PRN NICOTINE REPLACEMENT RX Multivit/Folic Acid/Iron 1 tab 07/17/18 10:00 08/02/18 09:28 Vitamins ([facility]) - PO Not Given DAILY JOEY Pseudoephedrine/Triprolidine 1 combo 07/16/18 12:43 Actifed - PO TID PRN NASAL CONGESTION Thiamine HCl 100 mg 07/16/18 22:00 08/01/18 21:42 Vitamin B1 - PO 100 mg HS JOEY Administration Current Side Effect: No Lab tests ordered: No Lab tests reviewed: Yes Provider note:: Patient completed this program today.He has met his treatment goals and will continue to address his issues on outpatient basis at [facility].Patient identifies areas of difficulties ,coping skills,support utilizations has been discussed with the patient as well as other resourses to maintain recovery. Patient is stable for discharge today. Mental Status Exam - Mental Status Exam Alert and Oriented to: Time Cognitive Function: Grossly Intact Patient Appearance: Well Groomed Mood: Euthymic Affect: Appropriate, Mood Congruent, Normal Range Patient Behavior: Cooperative Speech Pattern: Clear Voice Loudness: Normal Thought Process: Goal Oriented Thought Disorder: Not Present Hallucinations: Denies Suicidal Ideation: Denies Homicidal Ideation: Denies Insight/Judgement: Good Sleep: Well Appetite: Good Muscle strength/Tone: Normal Gait/Station: Normal Psychiatric Treatment Plan - Problem List (1) Alcohol dependence Current Visit: Yes (2) Asthma Current Visit: Yes (3) Bipolar disorder Current Visit: Yes (4) Nicotine dependence Current Visit: Yes (5) Opioid dependence on agonist therapy Current Visit: Yes (6) Hepatitis C Current Visit: Yes
--- NOTE | 2018-08-02 15:01 | PN ---
[facility] Progress Note Note: REHAB COMPLETED AND PT DISCHARGED TODAY. ALERT O X 3. PT MET WITH HIS COUNSELOR TODAY [facility] AND WILL FOLLOW UP WITH HIS [facility]. PT REPORTS SAME SITE PROVIDES MEDICAL MANAGEMENT FOR HIM. Vital Signs - 24 hr 08/02/18 08/02/18 08/02/18 00:30 03:30 06:51 Temperature 97.8 F Pulse Rate 57 L Respiratory 18 18 16 Rate Blood Pressure 128/82 NAD PLAN:FOLLOW UP WITH Jon TREATMENT PROGRAM RECOMMENDED
== END 2018-08-02 10:00 | disposition home or self-care (01) | DRG 772 ==
LOC: YASAS 16:10 → Y5N 16:11
PROVIDERS: ADMIT Psychiatry & Neurology Psychiatry; ATTEND Psychiatry & Neurology Psychiatry
PROC: HZ42ZZZ Group Counseling for Substance Abuse Treatment, Cognitive-Behavioral (ICD-10-PCS; principal; 2018-07-16)
DX: F10.20 Alcohol dependence, uncomplicated (principal); F11.20 Opioid dependence, uncomplicated; F17.210 Nicotine dependence, cigarettes, uncomplicated; F31.9 Bipolar disorder, unspecified; J45.909 Unspecified asthma, uncomplicated; B18.2 Chronic viral hepatitis C

== ENCOUNTER 2019-01-14 18:19 | Inpatient (IN) | payer OTHER ==
[2019-01-14 18:52] VITALS: BMI 32.4
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
[2019-01-14] MEDS ORDERED: MENTHOL/PHENOL 1 EACH UD MM PRN (21:06)
[2019-01-14] MEDS ORDERED: hydrOXYzine PAMOATE 25 MG CAPSULE (FP) PO PRN (21:06)
[2019-01-14] MEDS ORDERED: IBUPROFEN 400 MG TABLET (FP) PO PRN (21:06)
[2019-01-14] MEDS ORDERED: METHOCARBAMOL 500 MG TABLET PO PRN (21:06)
[2019-01-14] MEDS ORDERED: MAG HYDROX/AL HYDROX/SIMETH 30 ML UNIT-DOSE CUP PO PRN (21:06)
[2019-01-14] MEDS ORDERED: BISMUTH SUBSALICYLATE 524 MG/30 ML UD PO PRN (21:06)
[2019-01-14] MEDS ORDERED: MAGNESIUM HYDROX 2400MG/30ML ORAL SUSPENSION 30 ML CUP PO PRN (21:06)
[2019-01-14] MEDS ORDERED: NICOTINE POLACRILEX 2 MG GUM BUC PRN (21:06)
[2019-01-14] MEDS ORDERED: ACETAMINOPHEN 325 MG TABLET (FP) PO PRN ×2 (21:06)
[2019-01-14] MEDS ORDERED: MAGNESIUM CITRATE 300 ML BOTTLE PO PRN (21:06)
[2019-01-14] MEDS ORDERED: chlordiazePOXIDE HCL 25 MG CAPSULE PO PRN (21:06)
[2019-01-14] MEDS: chlordiazePOXIDE HCL 25 MG CAPSULE PO SCH (22:43)
[2019-01-14] MEDS: THIAMINE HCL 100 MG TABLET (FP) PO SCH (22:43)
[2019-01-15] MEDS: chlordiazePOXIDE HCL 25 MG CAPSULE PO SCH ×4 (05:53→22:27)
[2019-01-15] MEDS: FUROSEMIDE 40 MG TABLET (FP) PO SCH ×2 (05:53→14:22)
[2019-01-15] MEDS ORDERED: METHADONE HCL 40 MG DISPERSABLE TABLET PO ONE (10:00)
[2019-01-15 10:05] LABS: ALBUMIN 3.5 g/dl (3.4-5.0); BILIRUBIN,TOTAL 0.7 mg/dL (0.2-1); BLOOD UREA NITROGEN 12.9 mg/dL (7-18); CALCIUM 8.3 mg/dL (8.5-10.1); CREATININE 0.7 mg/dL (0.55-1.3); POTASSIUM 3.7 mmol/L (3.5-5.1); TOT PROT 6.7 g/dl (6.4-8.2)
[2019-01-15 10:12] LABS: HEMATOCRIT 32.9 % (35.4-49); HEMOGLOBIN 11.2 GM/dL (11.7-16.9); MCH 29.9 pg (25.7-33.7); MCHC 34.2 g/dl (32.0-35.9); MEAN CELL VOLUME 87.5 fl (80-96); MEAN PLT VOLUME 8.6 fl (7.5-11.1); PLATELET COUNT 152 K/MM3 (134-434); RBC 3.76 M/mm3 (4.00-5.60); RDW 14.5 % (11.9-15.9)
[2019-01-15] MEDS: NICOTINE 14 MG/24 HOURS TOPICAL PATCH TD SCH (10:27)
[2019-01-15] MEDS: PRENATAL VITAMINS W/ FOLIC ACID TABLET (FP) PO SCH (10:31)
--- NOTE | 2019-01-15 10:35 | PN ---
[facility] CIWA - CIWA Score Nausea/Vomitin-Mild Nausea/No Vomiting Muscle Tremors: 4-Moderate,w/Arms Extend Anxiety: 2 Agitation: 3 Paroxysmal Sweats: 1-Minimal Palms Moist Orientation: 1-Uncertain about Date Tacttile Disturbances: 1-Very Mild Itch/Numbness Auditory Disturbances: 0-None Visual Disturbances: 0-None Headache: 2-Mild CIWA-Ar Total Score: 15 S Progress Note (SOAP) Subjective: received methadone 80 mg feeling better tolerate food and fluid well tremor less restlessness Objective: 01/15/19 10:34 Vital Signs Temperature 98.7 F 01/15/19 09:01 Pulse Rate 53 L 01/15/19 09:01 Respiratory Rate 18 01/15/19 09:01 Blood Pressure 144/77 01/15/19 09:01 O2 Sat by Pulse Oximetry (%) Laboratory Last Values WBC 3.0 K/mm3 (4.0-10.0) L 01/15/19 08:00 RBC 3.76 M/mm3 (4.00-5.60) L 01/15/19 08:00 Hgb 11.2 GM/dL (11.7-16.9) L 01/15/19 08:00 Hct 32.9 % (35.4-49) L 01/15/19 08:00 MCV 87.5 fl (80-96) 01/15/19 08:00 MCH 29.9 pg (25.7-33.7) 01/15/19 08:00 MCHC 34.2 g/dl (32.0-35.9) 01/15/19 08:00 RDW 14.5 % (11.9-15.9) 01/15/19 08:00 Plt Count 152 K/MM3 (134-434) 01/15/19 08:00 MPV 8.6 fl (7.5-11.1) 01/15/19 08:00 Sodium 141 mmol/L (136-145) 01/15/19 08:00 Potassium 3.7 mmol/L (3.5-5.1) 01/15/19 08:00 Chloride 108 mmol/L (98-107) H 01/15/19 08:00 Carbon Dioxide 29 mmol/L (21-32) 01/15/19 08:00 Anion Gap 4 MMOL/L (8-16) L 01/15/19 08:00 BUN 12.9 mg/dL (7-18) 01/15/19 08:00 Creatinine 0.7 mg/dL (0.55-1.3) 01/15/19 08:00 Est GFR (CKD-EPI)AfAm 124.00 01/15/19 08:00 Est GFR (CKD-EPI)NonAf 106.99 01/15/19 08:00 Random Glucose 106 mg/dL (74-106) 01/15/19 08:00 Calcium 8.3 mg/dL (8.5-10.1) L 01/15/19 08:00 Total Bilirubin 0.7 mg/dL (0.2-1) 01/15/19 08:00 AST 12 U/L (15-37) L 01/15/19 08:00 ALT 19 U/L (13-61) 01/15/19 08:00 Alkaline Phosphatase 80 U/L (45-117) 01/15/19 08:00 Total Protein 6.7 g/dl (6.4-8.2) 01/15/19 08:00 Albumin 3.5 g/dl (3.4-5.0) 01/15/19 08:00 RPR Titer Nonreactive (NONREACTIVE) 01/15/19 08:00 lab noted 01/15/19 10:36 patient will follow up low wbc with his methadone program Assessment: 01/15/19 10:37 alcohol withdrawal sx Plan: continue alcohol detox
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
--- NOTE | 2019-01-15 11:45 | EKG ---
Test Reason : Blood Pressure : / mmHG Vent. Rate : 047 BPM Atrial Rate : 047 BPM P-R Int : 210 ms QRS Dur : 090 ms QT Int : 466 ms P-R-T Axes : 045 012 046 degrees QTc Int : 412 ms SINUS BRADYCARDIA WITH 1ST DEGREE A-V BLOCK VOLTAGE CRITERIA FOR LEFT VENTRICULAR HYPERTROPHY ABNORMAL ECG WHEN COMPARED WITH ECG OF 13-JUL-2018 06:27, RI INTERVAL HAS INCREASED NONSPECIFIC T WAVE ABNORMALITY NO LONGER EVIDENT IN LATERAL LEADS Confirmed by RUBA DUMONT MD ([id number]) on 01/15/2019 11:45:28 AM Referred By: Brent Appiah Confirmed By:RUBA DUMONT MD
[2019-01-15] MEDS: THIAMINE HCL 100 MG TABLET (FP) PO SCH (22:27)
[2019-01-16] MEDS: METHADONE HCL 40 MG DISPERSABLE TABLET PO SCH (06:52)
[2019-01-16] MEDS: chlordiazePOXIDE HCL 25 MG CAPSULE PO SCH ×4 (06:52→22:18)
[2019-01-16] MEDS: FUROSEMIDE 40 MG TABLET (FP) PO SCH ×2 (06:52→14:19)
[2019-01-16] MEDS: PRENATAL VITAMINS W/ FOLIC ACID TABLET (FP) PO SCH (10:16)
[2019-01-16] MEDS: NICOTINE 14 MG/24 HOURS TOPICAL PATCH TD SCH (10:16)
--- NOTE | 2019-01-16 14:44 | PN ---
S CIWA - CIWA Score Nausea/Vomitin-Mild Nausea/No Vomiting Muscle Tremors: 2 Anxiety: 3 Agitation: 3 Paroxysmal Sweats: 1-Minimal Palms Moist Orientation: 1-Uncertain about Date Tacttile Disturbances: 1-Very Mild Itch/Numbness Auditory Disturbances: 0-None Visual Disturbances: 0-None Headache: 0-None Present CIWA-Ar Total Score: 12 BHS Progress Note (SOAP) Subjective: tremor trouble sleep at night restlessness Objective: 01/16/19 14:43 Vital Signs Temperature 98.1 F 01/16/19 13:11 Pulse Rate 57 L 01/16/19 13:11 Respiratory Rate 16 01/16/19 13:11 Blood Pressure 122/70 01/16/19 13:11 O2 Sat by Pulse Oximetry (%) Laboratory Last Values WBC 3.0 K/mm3 (4.0-10.0) L 01/15/19 08:00 RBC 3.76 M/mm3 (4.00-5.60) L 01/15/19 08:00 Hgb 11.2 GM/dL (11.7-16.9) L 01/15/19 08:00 Hct 32.9 % (35.4-49) L 01/15/19 08:00 MCV 87.5 fl (80-96) 01/15/19 08:00 MCH 29.9 pg (25.7-33.7) 01/15/19 08:00 MCHC 34.2 g/dl (32.0-35.9) 01/15/19 08:00 RDW 14.5 % (11.9-15.9) 01/15/19 08:00 Plt Count 152 K/MM3 (134-434) 01/15/19 08:00 MPV 8.6 fl (7.5-11.1) 01/15/19 08:00 Sodium 141 mmol/L (136-145) 01/15/19 08:00 Potassium 3.7 mmol/L (3.5-5.1) 01/15/19 08:00 Chloride 108 mmol/L (98-107) H 01/15/19 08:00 Carbon Dioxide 29 mmol/L (21-32) 01/15/19 08:00 Anion Gap 4 MMOL/L (8-16) L 01/15/19 08:00 BUN 12.9 mg/dL (7-18) 01/15/19 08:00 Creatinine 0.7 mg/dL (0.55-1.3) 01/15/19 08:00 Est GFR (CKD-EPI)AfAm 124.00 01/15/19 08:00 Est GFR (CKD-EPI)NonAf 106.99 01/15/19 08:00 Random Glucose 106 mg/dL (74-106) 01/15/19 08:00 Calcium 8.3 mg/dL (8.5-10.1) L 01/15/19 08:00 Total Bilirubin 0.7 mg/dL (0.2-1) 01/15/19 08:00 AST 12 U/L (15-37) L 01/15/19 08:00 ALT 19 U/L (13-61) 01/15/19 08:00 Alkaline Phosphatase 80 U/L (45-117) 01/15/19 08:00 Total Protein 6.7 g/dl (6.4-8.2) 01/15/19 08:00 Albumin 3.5 g/dl (3.4-5.0) 01/15/19 08:00 RPR Titer Nonreactive (NONREACTIVE) 01/15/19 08:00 lab noted Assessment: 01/16/19 14:43 alcohol withdrawal sx Plan: continue alcohol detox
[2019-01-16] MEDS: THIAMINE HCL 100 MG TABLET (FP) PO SCH (22:18)
[2019-01-17] MEDS ORDERED: chlordiazePOXIDE HCL 10 MG CAPSULE PO PRN
[2019-01-17] MEDS: METHADONE HCL 40 MG DISPERSABLE TABLET PO SCH (05:48)
[2019-01-17] MEDS: chlordiazePOXIDE HCL 10 MG CAPSULE PO SCH ×4 (05:49→22:40)
[2019-01-17] MEDS: FUROSEMIDE 40 MG TABLET (FP) PO SCH ×2 (05:49→14:37)
[2019-01-17] MEDS: NICOTINE 14 MG/24 HOURS TOPICAL PATCH TD SCH (10:23)
[2019-01-17] MEDS: PRENATAL VITAMINS W/ FOLIC ACID TABLET (FP) PO SCH (11:03)
--- NOTE | 2019-01-17 13:22 | PN ---
[facility] CIWA - CIWA Score Nausea/Vomitin-Mild Nausea/No Vomiting Muscle Tremors: 3 Anxiety: 2 Agitation: 2 Paroxysmal Sweats: 1-Minimal Palms Moist Orientation: 1-Uncertain about Date Tacttile Disturbances: 1-Very Mild Itch/Numbness Auditory Disturbances: 0-None Visual Disturbances: 0-None Headache: 0-None Present CIWA-Ar Total Score: 11 S Progress Note (SOAP) Subjective: ambulating with cane less tremor limited social activities with peers mild restlessness Objective: 01/17/19 13:22 Vital Signs Temperature 98.1 F 01/17/19 13:09 Pulse Rate 82 01/17/19 13:09 Respiratory Rate 18 01/17/19 13:09 Blood Pressure 114/76 01/17/19 13:09 O2 Sat by Pulse Oximetry (%) Laboratory Last Values WBC 3.0 K/mm3 (4.0-10.0) L 01/15/19 08:00 RBC 3.76 M/mm3 (4.00-5.60) L 01/15/19 08:00 Hgb 11.2 GM/dL (11.7-16.9) L 01/15/19 08:00 Hct 32.9 % (35.4-49) L 01/15/19 08:00 MCV 87.5 fl (80-96) 01/15/19 08:00 MCH 29.9 pg (25.7-33.7) 01/15/19 08:00 MCHC 34.2 g/dl (32.0-35.9) 01/15/19 08:00 RDW 14.5 % (11.9-15.9) 01/15/19 08:00 Plt Count 152 K/MM3 (134-434) 01/15/19 08:00 MPV 8.6 fl (7.5-11.1) 01/15/19 08:00 Sodium 141 mmol/L (136-145) 01/15/19 08:00 Potassium 3.7 mmol/L (3.5-5.1) 01/15/19 08:00 Chloride 108 mmol/L (98-107) H 01/15/19 08:00 Carbon Dioxide 29 mmol/L (21-32) 01/15/19 08:00 Anion Gap 4 MMOL/L (8-16) L 01/15/19 08:00 BUN 12.9 mg/dL (7-18) 01/15/19 08:00 Creatinine 0.7 mg/dL (0.55-1.3) 01/15/19 08:00 Est GFR (CKD-EPI)AfAm 124.00 01/15/19 08:00 Est GFR (CKD-EPI)NonAf 106.99 01/15/19 08:00 Random Glucose 106 mg/dL (74-106) 01/15/19 08:00 Calcium 8.3 mg/dL (8.5-10.1) L 01/15/19 08:00 Total Bilirubin 0.7 mg/dL (0.2-1) 01/15/19 08:00 AST 12 U/L (15-37) L 01/15/19 08:00 ALT 19 U/L (13-61) 01/15/19 08:00 Alkaline Phosphatase 80 U/L (45-117) 01/15/19 08:00 Total Protein 6.7 g/dl (6.4-8.2) 01/15/19 08:00 Albumin 3.5 g/dl (3.4-5.0) 01/15/19 08:00 RPR Titer Nonreactive (NONREACTIVE) 01/15/19 08:00 lab noted Assessment: 01/17/19 13:22 alcohol withdrawal sx Plan: continue alcohol detox
[2019-01-17] MEDS: THIAMINE HCL 100 MG TABLET (FP) PO SCH (22:39)
[2019-01-17] MEDS: MELATONIN 5 MG TABLETS PO PRN (22:40)
[2019-01-18] MEDS: FUROSEMIDE 40 MG TABLET (FP) PO SCH ×2 (05:15→14:21)
[2019-01-18] MEDS: chlordiazePOXIDE HCL 10 MG CAPSULE PO SCH ×2 (05:15→17:09)
[2019-01-18] MEDS: METHADONE HCL 40 MG DISPERSABLE TABLET PO SCH (05:15)
[2019-01-18] MEDS: NICOTINE 14 MG/24 HOURS TOPICAL PATCH TD SCH (10:17)
[2019-01-18] MEDS: PRENATAL VITAMINS W/ FOLIC ACID TABLET (FP) PO SCH (10:17)
[2019-01-18] MEDS ORDERED: FUROSEMIDE 40 MG TABLET (FP) PO SCH (12:06)
--- NOTE | 2019-01-18 15:53 | PN ---
S CIWA - CIWA Score Nausea/Vomitin-Mild Nausea/No Vomiting Muscle Tremors: 2 Anxiety: 3 Agitation: 2 Paroxysmal Sweats: No Perspiration Orientation: 0-Oriented Tacttile Disturbances: 0-None Auditory Disturbances: 0-None Visual Disturbances: 0-None Headache: 0-None Present CIWA-Ar Total Score: 8 BHS Progress Note (SOAP) Subjective: 53 years old male admitted on 01/14/19 for alcohol withdrawal sx medical history of congestive heart failure and peripheral vascular insufficient and both ankle edema treated with lasix 40 mg po bid due to low bp hold lasix and weight encourage legs elevation Objective: 01/18/19 15:59 Vital Signs Temperature 97.1 F L 01/18/19 14:18 Pulse Rate 62 01/18/19 14:18 Respiratory Rate 18 01/18/19 14:18 Blood Pressure 128/76 01/18/19 14:18 O2 Sat by Pulse Oximetry (%) Laboratory Last Values WBC 3.0 K/mm3 (4.0-10.0) L 01/15/19 08:00 RBC 3.76 M/mm3 (4.00-5.60) L 01/15/19 08:00 Hgb 11.2 GM/dL (11.7-16.9) L 01/15/19 08:00 Hct 32.9 % (35.4-49) L 01/15/19 08:00 MCV 87.5 fl (80-96) 01/15/19 08:00 MCH 29.9 pg (25.7-33.7) 01/15/19 08:00 MCHC 34.2 g/dl (32.0-35.9) 01/15/19 08:00 RDW 14.5 % (11.9-15.9) 01/15/19 08:00 Plt Count 152 K/MM3 (134-434) 01/15/19 08:00 MPV 8.6 fl (7.5-11.1) 01/15/19 08:00 Sodium 141 mmol/L (136-145) 01/15/19 08:00 Potassium 3.7 mmol/L (3.5-5.1) 01/15/19 08:00 Chloride 108 mmol/L (98-107) H 01/15/19 08:00 Carbon Dioxide 29 mmol/L (21-32) 01/15/19 08:00 Anion Gap 4 MMOL/L (8-16) L 01/15/19 08:00 BUN 12.9 mg/dL (7-18) 01/15/19 08:00 Creatinine 0.7 mg/dL (0.55-1.3) 01/15/19 08:00 Est GFR (CKD-EPI)AfAm 124.00 01/15/19 08:00 Est GFR (CKD-EPI)NonAf 106.99 01/15/19 08:00 Random Glucose 106 mg/dL (74-106) 01/15/19 08:00 Calcium 8.3 mg/dL (8.5-10.1) L 01/15/19 08:00 Total Bilirubin 0.7 mg/dL (0.2-1) 01/15/19 08:00 AST 12 U/L (15-37) L 01/15/19 08:00 ALT 19 U/L (13-61) 01/15/19 08:00 Alkaline Phosphatase 80 U/L (45-117) 01/15/19 08:00 Total Protein 6.7 g/dl (6.4-8.2) 01/15/19 08:00 Albumin 3.5 g/dl (3.4-5.0) 01/15/19 08:00 RPR Titer Nonreactive (NONREACTIVE) 01/15/19 08:00 lab noted Assessment: 01/18/19 16:00 alcohol withdrawal sx Plan: continue alcohol detox
[2019-01-18] MEDS: MELATONIN 5 MG TABLETS PO PRN (22:14)
[2019-01-18] MEDS: THIAMINE HCL 100 MG TABLET (FP) PO SCH (22:14)
[2019-01-19] MEDS ORDERED: chlordiazePOXIDE HCL 10 MG CAPSULE PO ONE (05:00)
[2019-01-19] MEDS: METHADONE HCL 40 MG DISPERSABLE TABLET PO SCH (06:13)
[2019-01-19] MEDS: FUROSEMIDE 40 MG TABLET (FP) PO SCH ×2 (07:17→13:31)
[2019-01-19] MEDS: PRENATAL VITAMINS W/ FOLIC ACID TABLET (FP) PO SCH (10:18)
[2019-01-19] MEDS: NICOTINE 14 MG/24 HOURS TOPICAL PATCH TD SCH (10:18)
[2019-01-19 13:08] VITALS: BP 124/71; PULSE 68; TEMP 98.6
--- NOTE | 2019-01-19 18:01 | DS ---
[facility] Detox Discharge Summary Admission Date: 01/14/19 Discharge Date: 01/19/19 - History Present History: Alcohol Dependence, Opioid Dependence, MMTP Additional Comments: PER BUSINESS TRAINER Jolene LEES, NO REHAB AVAILABLE BEDS AT SEVERAL LOCATIONS AT THIS TIME. PATIENT WILL FOLLOW-UP AT [facility] ON HIS OWN ON TUESDAY, FOR AFTERCARE. PATIENT WILL ALSO RETURN TO ON LICENSE OF [facility] ([place], [place]), WHERE HE HAS PREVIOUSLY BEEN A CLIENT, FOR AFTERCARE. PATIENT REPORTS HISTORY OF OUTPATIENT PRESCRIPTION FOR LASIX THAT HE WAS PRESCRIBED (OSTENSIBLY FOR HISTORY OF SWELLING IN BILATERAL LEGS) PRIOR TO ADMISSION TO DETOX. PATIENT REPORTS THAT HE WAS PRESCRIBED (ONLY) A TWO -WEEK COURSE OF THE MEDICATION FROM AN ER AND THAT HE COMPLETED THE FULL COURSE OF THE MEDICATION A FEW DAYS BEFORE ADMISSION TO DETOX UNIT. LASIX WAS HELD SEVERAL TIMES DURING DETOX ADMISSION DUE TO LOW BLOOD PRESSURE. PATIENT ADVISED TO FOLLOW-UP WITH [employer] OFFICER SOON POSSIBLE AFTER DISCHARGE FROM DETOX UNIT FOR GENERAL MEDICAL ASSESSMENT AND FOR HISTORY OF SWELLING IN LEGS AND FOR HISTORY OF OUTPATIENT PRESCRIPTION OF LASIX TO TREAT. PATIENT ALSO ADVISED TO FOLLOW-UP WITH [employer] OFFICER AFTER DISCHARGE FROM DETOX FOR FOR LOW WBC LEVEL AND FOR ANEMIA NOTED ON DETOX ADMISSION LABORATORY ASSESSMENT. PATIENT VERBALIZED UNDERSTANDING OF ALL RECOMMENDATIONS PRESENTED TO HIM PRIOR TO DISCHARGE FROM DETOX UNIT. COPIES OF RESULTS OF ALL LABS DRAWN WHILE ADMITTED FOR DETOX GIVEN TO PATIENT AT TIME OF DISCHARGE FROM DETOX UNIT. PATIENT WAS DISCHARGED FROM DETOX UNIT IN STABLE MEDICAL CONDITION. Pertinent Past History: Asthma, M.M.T.P., Hep C (Treated), Depression, Bipolar Disorder, Anemia, Leukopenia, Nicotine Dependence. - Physical Exam Results Vital Signs: Vital Signs Temperature 98.6 F 01/19/19 13:07 Pulse Rate 68 01/19/19 13:07 Respiratory Rate 18 01/19/19 13:07 Blood Pressure 124/71 01/19/19 13:07 O2 Sat by Pulse Oximetry (%) Pertinent Admission Physical Exam Findings: WITHDRAWAL SYMPTOMS. Laboratory Tests 01/15/19 01/15/19 01/15/19 08:00 08:00 08:00 WBC 3.0 L RBC 3.76 L Hgb 11.2 L Hct 32.9 L MCV 87.5 MCH 29.9 MCHC 34.2 RDW 14.5 Plt Count 152 MPV 8.6 Sodium 141 Potassium 3.7 Chloride 108 H Carbon Dioxide 29 Anion Gap 4 L BUN 12.9 Creatinine 0.7 Est GFR (CKD-EPI)AfAm 124.00 Est GFR (CKD-EPI)NonAf 106.99 Random Glucose 106 Calcium 8.3 L Total Bilirubin 0.7 AST 12 L ALT 19 Alkaline Phosphatase 80 Total Protein 6.7 Albumin 3.5 RPR Titer Nonreactive LABS NOTED. - Treatment Hospital Course: Detox Protocol Followed, Detoxed Safely, Responded well, Discharged Condition Good Patient has Accepted a Rehab Referral to: PT. WILL FOLLOW-UP AT [facility] ([place], [place]) ON 01/22/2019. - Diagnosis (1) Alcohol dependence with uncomplicated withdrawal Status: Acute (2) Asthma Status: Chronic Qualifiers: Asthma severity: mild Asthma persistence: intermittent Asthma complication type: uncomplicated Qualified Code(s): J45.20 - Mild intermittent asthma, uncomplicated (3) Methadone maintenance therapy patient Status: Chronic (4) Nicotine dependence Status: Chronic Qualifiers: Nicotine product type: cigarettes Substance use status: uncomplicated Qualified Code(s): F17.210 - Nicotine dependence, cigarettes, uncomplicated (5) Substance induced mood disorder Status: Acute - AMA Did Patient Leave Against Medical Advice: No
== END 2019-01-19 13:35 | disposition home or self-care (01) | DRG 773 ==
LOC: YASAS 18:19 → Y3N 22:01
PROVIDERS: ADMIT Surgery; ATTEND Surgery
PROC: HZ2ZZZZ Detoxification Services for Substance Abuse Treatment (ICD-10-PCS; principal; 2019-01-14)
DX: F10.230 Alcohol dependence with withdrawal, uncomplicated (principal); F11.20 Opioid dependence, uncomplicated; F17.210 Nicotine dependence, cigarettes, uncomplicated; F31.9 Bipolar disorder, unspecified; F19.24 Other psychoactive substance dependence with psychoactive substance-induced mood disorder; J45.20 Mild intermittent asthma, uncomplicated; Z86.79 Personal history of other diseases of the circulatory system; I73.9 Peripheral vascular disease, unspecified; Z99.89 Dependence on other enabling machines and devices; Z59.0 Homelessness
CPT/HCPCS: 36415; 80053; 85027; 86593; 93005; 93010

== ENCOUNTER 2019-02-07 12:59 | Inpatient (IN) | payer SELFPAY | END 2019-02-11 12:16 | disposition home or self-care (01) | LOC: YASAS 12:59 → Y3N 18:02 ==

== ENCOUNTER 2021-11-23 03:14 | Inpatient (IN) | payer OTHER ==
[2021-11-23 03:25] VITALS: BMI 32.5
[2021-11-23] MEDS ORDERED: LORazepam 1 MG TABLET PO PRN (09:48)
[2021-11-23] MEDS ORDERED: ONDANSETRON *ODT* 4 MG TABLET SL PRN (09:49)
[2021-11-23] MEDS ORDERED: LOPERAMIDE HCL 2 MG CAPSULE PO PRN (09:49)
[2021-11-23] MEDS ORDERED: MAGNESIUM HYDROX 2400MG/30ML ORAL SUSPENSION 30 ML CUP PO PRN (09:49)
[2021-11-23] MEDS ORDERED: BENZOCAINE/MENTHOL (CHLORASEPTIC ) LOZENGE MM PRN (09:49)
[2021-11-23] MEDS ORDERED: ACETAMINOPHEN 325 MG TABLET (FP) PO PRN ×2 (09:49)
[2021-11-23] MEDS ORDERED: MAG HYDROX/AL HYDROX/SIMETH 30 ML UNIT-DOSE CUP PO PRN (09:49)
[2021-11-23] MEDS ORDERED: DICYCLOMINE HCL 10 MG CAPSULE PO PRN (09:49)
[2021-11-23] MEDS ORDERED: BISMUTH SUBSALICYLATE 262 MG/15 ML BTL PO PRN (09:49)
[2021-11-23] MEDS ORDERED: MAGNESIUM CITRATE 300 ML BOTTLE PO PRN (09:49)
[2021-11-23] MEDS ORDERED: NICOTINE 10 MG CARTRIDGE (INHALER) IH PRN (09:49)
[2021-11-23] MEDS ORDERED: FUROSEMIDE 20 MG TABLET (FP) PO SCH (10:00)
[2021-11-23] MEDS: IBUPROFEN 400 MG TABLET (FP) PO PRN (12:09)
[2021-11-23] MEDS: hydrOXYzine PAMOATE 25 MG CAPSULE (FP) PO SCH ×4 (12:09→23:32)
[2021-11-23] MEDS: LORazepam 2 MG TABLET PO SCH ×3 (12:10→23:31)
[2021-11-23] MEDS: PRENATAL VITAMINS W/ FOLIC ACID TABLET (FP) PO SCH (12:11)
[2021-11-23] MEDS: NICOTINE 14 MG/24 HOURS TOPICAL PATCH TD SCH (12:12)
[2021-11-23] MEDS ORDERED: methaDONE HCL 40 MG DISPERSABLE TABLET PO ONE (12:38)
[2021-11-23 17:06] LABS: HEMATOCRIT 32.7 % (35.4-49); HEMOGLOBIN 10.7 GM/dL (11.7-16.9); MCH 27.4 pg (25.7-33.7); MCHC 32.6 g/dl (32.0-35.9); MEAN CELL VOLUME 84.1 fl (80-96); MEAN PLT VOLUME 9.7 fl (7.5-11.1); PLATELET COUNT 180 10^3/uL (134-434); RBC 3.88 M/mm3 (4.00-5.60); RDW 17.2 % (11.9-15.9); WHITE BLOOD COUNT 3.1 K/mm3 (4.0-10.0)
[2021-11-23 17:25] LABS: BLOOD UREA NITROGEN 19.4 mg/dL (7-18); CALCIUM 9.1 mg/dL (8.5-10.1)
[2021-11-23 17:26] LABS: ALBUMIN 3.8 g/dl (3.4-5.0)
[2021-11-23 17:29] LABS: BILIRUBIN,TOTAL 0.6 mg/dL (0.2-1); TOT PROT 8.1 g/dl (6.4-8.2)
[2021-11-23 17:31] LABS: CREATININE 0.7 mg/dL (0.55-1.3)
[2021-11-23] MEDS ORDERED: traZODone HCL 100 MG TABLET (FP) PO SCH (22:00)
[2021-11-23] MEDS: FUROSEMIDE 20 MG TABLET (FP) PO SCH (23:31)
[2021-11-23] MEDS: MELATONIN 5 MG TABLETS PO SCH (23:31)
[2021-11-23] MEDS: traZODone HCL 50 MG TABLET (FP) PO SCH (23:31)
[2021-11-23] MEDS: THIAMINE HCL 100 MG TABLET (FP) PO SCH (23:32)
[2021-11-24] MEDS: LORazepam 2 MG TABLET PO SCH ×4 (05:48→23:01)
[2021-11-24] MEDS: methaDONE HCL 40 MG DISPERSABLE TABLET PO SCH (05:49)
[2021-11-24] MEDS: FUROSEMIDE 20 MG TABLET (FP) PO SCH ×2 (05:49→14:31)
[2021-11-24] MEDS: hydrOXYzine PAMOATE 25 MG CAPSULE (FP) PO SCH ×5 (07:26→22:33)
[2021-11-24] MEDS: PRENATAL VITAMINS W/ FOLIC ACID TABLET (FP) PO SCH (10:27)
[2021-11-24] MEDS: METHOCARBAMOL 500 MG TABLET PO PRN (10:27)
[2021-11-24] MEDS: NICOTINE 14 MG/24 HOURS TOPICAL PATCH TD SCH (10:29)
[2021-11-24] MEDS: THIAMINE HCL 100 MG TABLET (FP) PO SCH (22:33)
[2021-11-24] MEDS: MELATONIN 5 MG TABLETS PO SCH (22:33)
[2021-11-24] MEDS: traZODone HCL 50 MG TABLET (FP) PO SCH (23:01)
[2021-11-25] MEDS: hydrOXYzine PAMOATE 25 MG CAPSULE (FP) PO SCH ×5 (05:04→22:34)
[2021-11-25] MEDS: FUROSEMIDE 20 MG TABLET (FP) PO SCH ×2 (05:04→15:01)
[2021-11-25] MEDS: methaDONE HCL 40 MG DISPERSABLE TABLET PO SCH (05:04)
[2021-11-25] MEDS: LORazepam 1 MG TABLET PO SCH ×4 (05:04→22:34)
[2021-11-25 10:07] LABS: SARS-CoV-2 NAA Not Detected (Not Detected)
[2021-11-25] MEDS: METHOCARBAMOL 500 MG TABLET PO PRN (10:33)
[2021-11-25] MEDS: PRENATAL VITAMINS W/ FOLIC ACID TABLET (FP) PO SCH (10:33)
[2021-11-25] MEDS: NICOTINE 14 MG/24 HOURS TOPICAL PATCH TD SCH (10:34)
[2021-11-25] MEDS: THIAMINE HCL 100 MG TABLET (FP) PO SCH (22:34)
[2021-11-25] MEDS: MELATONIN 5 MG TABLETS PO SCH (22:34)
[2021-11-25] MEDS: traZODone HCL 50 MG TABLET (FP) PO SCH (22:35)
[2021-11-26] MEDS ORDERED: LORazepam 0.5 MG TABLET PO PRN
[2021-11-26] MEDS: methaDONE HCL 40 MG DISPERSABLE TABLET PO SCH (05:32)
[2021-11-26] MEDS: FUROSEMIDE 20 MG TABLET (FP) PO SCH ×2 (05:33→14:29)
[2021-11-26] MEDS: LORazepam 0.5 MG TABLET PO SCH ×4 (05:33→22:54)
[2021-11-26] MEDS: hydrOXYzine PAMOATE 25 MG CAPSULE (FP) PO SCH ×5 (06:15→22:54)
[2021-11-26] MEDS: PRENATAL VITAMINS W/ FOLIC ACID TABLET (FP) PO SCH (10:24)
[2021-11-26] MEDS: NICOTINE 14 MG/24 HOURS TOPICAL PATCH TD SCH (10:24)
[2021-11-26] MEDS: IBUPROFEN 400 MG TABLET (FP) PO PRN ×2 (10:25→19:22)
[2021-11-26] MEDS: METHOCARBAMOL 500 MG TABLET PO PRN (10:25)
[2021-11-26] MEDS: MELATONIN 5 MG TABLETS PO SCH (22:54)
[2021-11-26] MEDS: THIAMINE HCL 100 MG TABLET (FP) PO SCH (22:54)
[2021-11-26] MEDS: traZODone HCL 50 MG TABLET (FP) PO SCH (22:54)
[2021-11-27] MEDS ORDERED: LORazepam 0.5 MG TABLET PO ONE (05:00)
[2021-11-27] MEDS: methaDONE HCL 40 MG DISPERSABLE TABLET PO SCH (05:11)
[2021-11-27] MEDS: FUROSEMIDE 20 MG TABLET (FP) PO SCH (06:00)
[2021-11-27] MEDS: hydrOXYzine PAMOATE 25 MG CAPSULE (FP) PO SCH ×2 (06:48→10:54)
[2021-11-27 09:04] VITALS: BP 113/58; PULSE 57; TEMP 98
[2021-11-27] MEDS: NICOTINE 14 MG/24 HOURS TOPICAL PATCH TD SCH (10:53)
[2021-11-27] MEDS: PRENATAL VITAMINS W/ FOLIC ACID TABLET (FP) PO SCH (10:53)
== END 2021-11-27 09:55 | disposition home or self-care (01) | DRG 773 ==
LOC: YASAS 03:14 → Y6N 11:00
PROVIDERS: ADMIT Allergy & Immunology; ATTEND Surgery
PROC: HZ2ZZZZ Detoxification Services for Substance Abuse Treatment (ICD-10-PCS; principal; 2021-11-23)
DX: F11.23 Opioid dependence with withdrawal (principal); F10.230 Alcohol dependence with withdrawal, uncomplicated; F17.210 Nicotine dependence, cigarettes, uncomplicated; I73.9 Peripheral vascular disease, unspecified; J45.20 Mild intermittent asthma, uncomplicated; D72.819 Decreased white blood cell count, unspecified; D64.9 Anemia, unspecified; Z99.89 Dependence on other enabling machines and devices; Z59.02 Unsheltered homelessness
CPT/HCPCS: 36415; 80053; 85027; 86780; 87811; 93005; 93010; C9803-CS; Q0162; U0003; U0005